=== PATIENT | male | born 1995 | race Caucasian/White ===

== ENCOUNTER 2018-01-31 23:23 | Emergency (ER) | payer OTHER ==
[~2018-01-31] VITALS: Ht 175.3 cm; Wt 81.7 kg
[2018-01-31 23:42] LABS: URINE BILIRUBIN NEGATIVE (Negative); URINE BLOOD 3+ (Negative); URINE CLARITY CLEAR; URINE COLOR YELLOW; URINE GLUCOSE-RANDOM NEGATIVE (Negative); URINE KETONES NEGATIVE (Negative); URINE LEUKOCYTES-REFLEX NEGATIVE (Negative); URINE NITRITE-REFLEX NEGATIVE (Negative); URINE PROTEIN NEGATIVE (Negative); URINE UROBILINOGEN 0.2 E.U./dl (0.2-1.0)
[2018-01-31 23:48] LABS: ABSOLUTE BASOPHILS 0.1 thou/uL (0.0-0.2); ABSOLUTE EOSINOPHILS 0.1 thou/uL (0.0-0.7); ABSOLUTE LYMPHOCYTES 4.7 thou/uL (0.8-5.3); ABSOLUTE MONOCYTES 0.7 thou/uL (0.0-1.2); ABSOLUTE NEUTROPHILS 4.6 thou/uL (1.6-8.1); BASOPHILS 0.6 %; HEMATOCRIT 43.6 % (42.0-52.0); HEMOGLOBIN 14.9 gm/dL (14.0-18.0); LYMPHOCYTES 46.4 %; MCH 33.1 pg (26.0-34.0); MCHC 34.3 g/dL (28.0-37.0); MCV 96.6 fL (80.0-100.0); MPV 7.8 fl. (7.2-11.1); NUCLEATED RBCS 0 /100WBC; PLATELET COUNT* 194 thou/uL (150-400); RBC 4.51 mil/uL (4.50-6.00); RDW-CV 14.2 % (10.5-14.5); WBC 10.2 thou/uL (4.0-11.0)
[2018-01-31 23:55] LABS: CALCIUM 9.3 mg/dL (8.5-10.1); CREATININE 1.1 mg/dL (0.6-1.3); POTASSIUM 3.3 mmol/L (3.5-5.1)
[2018-02-01] LABS: ALBUMIN 4.4 g/dL (3.4-5.0); TOTAL BILIRUBIN 0.4 mg/dL (<0.1-1.0); TOTAL PROTEIN 7.9 g/dL (6.4-8.2)
[2018-02-01 00:47] LABS: CASTS None Seen /LPF (None Seen); SQUAMOUS 0-3 Few /LPF (0-3)
[2018-02-01 00:49] LABS: BACTERIA-REFLEX 1-9 Few /HPF (None Seen); CRYSTALS None Seen /LPF (None Seen); URINE WBC-REFLEX None Seen /HPF (0-5)
[2018-02-01] MEDS ORDERED: FLOMAX0.4 MG PO (00:55)
[2018-02-01] MEDS ORDERED: HYDROCODONE-AP1 EAC6 PO (00:55)
[2018-02-01] MEDS ORDERED: ZOFRAN ODT4 MG PO (00:55)
[2018-02-01 01:15] VITALS: BP 124/78
== END 2018-02-01 01:20 | disposition home or self-care (01) ==
LOC: M.ERS 23:23
PROVIDERS: Nurse Practitioner Family
DX: N20.0 Calculus of kidney (principal); F17.210 Nicotine dependence, cigarettes, uncomplicated